=== PATIENT | female | born 1995 | race African-American/Black ===

== ENCOUNTER 2016-05-17 15:24 | Emergency (ER) | payer BC ==
[~2016-05-17] VITALS: Ht 170.2 cm; Wt 76.0 kg
[~2016-05-17 15:24] MED LIST: NAPR-576 PO
[2016-05-17 15:27] VITALS: BP 146/84; PULSE 109; RESP 16; TEMP 99.3; O2SAT 99
[2016-05-17] MEDS ORDERED: IBUPROFEN 800 MG TAB PO ONE (16:45)
--- NOTE | 2016-05-17 16:46 | PD ---
HPI Chief Complaint: Cold / Flu Symptoms Time Seen by Provider: 16:44 Travel History International Travel<30 days: No Contact w/Intl Traveler<30days: No Traveled to known affect area: No History of Present Illness HPI 28-year-old female presents to the emergency Department with complaint of cough , nasal congestion, fever, body aches, headache since Monday with worsening on Monday. Fever onset on Monday with MAXIMUM TEMPERATURE 102.0. Denies ear pain or sore throat. Denies shortness of breath or chest pain. Has been taking DayQuil and NyQuil with some relief of symptoms. No one else with similar symptoms. Has not received a flu vaccination. Allergies to penicillin. Denies significant past medical history. No other modifying factors or associated signs and symptoms. 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 No rash. HEAD: Atraumatic. Normocephalic. EYES: Pupils equal and round at 3 mm with brisk reaction. No scleral icterus. No injection or drainage. PERRLA. ENT: Mucosa pink and moist. No erythema or exudates. No uvular edema. No uvular , palatal, or tonsillar deviation. Airway patent. EARS: Bilateral pinnae and external canals appear within normal limits. Bilateral tympanic membranes without erythema, dullness or perforation. NECK: Trachea midline. No lymphadenopathy. CARDIOVASCULAR: Regular rate and rhythm. No murmur appreciated. RESPIRATORY: No accessory muscle use. Clear to auscultation. Breath sounds equal bilaterally. GASTROINTESTINAL: Abdomen soft, non-tender, nondistended. Hepatic and splenic margins not palpable. Bowel sounds are active 4 quadrants. MUSCULOSKELETAL: No obvious deformities. No clubbing. No cyanosis. No edema. NEUROLOGICAL: Awake and alert. Oriented 3. No obvious cranial nerve deficits. Motor grossly within normal limits. Normal speech. Moves all extremities. 5/5 strength to all extremities. PSYCHIATRIC: Appropriate mood and affect; insight and judgment normal. Data Data Last Documented VS Vital Signs Date Time Temp Pulse Resp B/P Pulse Ox O2 Delivery O2 Flow Rate FiO2 05/17/16 15:27 99.3 109 16 146/84 99 Orders Influenzae A/B Antigen (05/17/16 16:42) Chest, Single Ap (05/17/16 16:42) Ibuprofen (Motrin) (05/17/16 16:45) MDM Medical Decision Making Medical Screen Exam Complete: Yes Emergency Medical Condition: Yes Medical Record Reviewed: Yes Differential Diagnosis Viral illness, influenza, sinusitis Narrative Course 20-year-old female with cold/flu symptoms since Monday. Low-grade fever of 99.3 in the ER. Nontoxic appearing. Patient reports fever for 102.0 at home. Denies sore throat. Denies chest pain or shortness of breath. Heart rate recheck on physical exam is approximate 90-100 bpm. Ibuprofen ordered. Chest x -ray and influenza ordered. 171: Chest x-ray with no acute findings. 183: Influenza positive. Discussed viral illness and symptomatic treatment and the patient verbalized understanding and agreement. Tessalon Perles, Nasonex nasal spray, ibuprofen prescribed for home. Patient is medically cleared and stable for discharge. Discussed reasons to return to the emergency department. Instructed patient to follow up with primary care provider. Patient agrees with treatment plan. The patients vital signs are stable and the patient is stable for outpatient follow-up and treatment. Patient discharged home, stable and in no acute distress. Diagnosis Primary Impression: Influenza A Referrals: Primary Care Physician Patient Instructions: General Instructions, Influenza (ED), Safe Use of Cough and Cold Medicines (ED) Departure Forms: School Release, Enter return to school date ABOVE or choose options BELOW: Fever free for 24 hrs Tests/Procedures Additional Instructions: Ibuprofen or Tylenol as directed and as needed to reduce fever; may alternate ibuprofen and Tylenol as needed every 3 hours to minimize fever [id number] antihistamines or decongestants as directed and as needed for symptom management Get plenty of sleep/rest Drink plenty of fluids to prevent dehydration [place] diet to encourage nutrition such as crackers, fruit, applesauce, toast, soup etc. Use an air humidifier/turn off ceiling fans Follow-up with your primary care provider within 1 day Return immediately to the emergency department with worsening of symptoms Med/Other Pt SpecificInfo: Prescription(s) given Scripts Ibuprofen 800 Mg [id number] Mg PO Q6HR PRN (PAIN) #30 TAB Ref 0 Prov:Amelia Escobar 05/17/16 Benzonatate (Tessalon Perles)100 Mg [id number] Mg PO TID PRN (COUGH) #20 CAP Ref 0 Prov:Amelia Escobar 05/17/16 Mometasone Nasal [place] (Nasonex Nasal [place])50 Mcg/Act Naspr2 [place] EACH NARE DAILY PRN (NASAL CONGESTION) #1 BOTTLE Ref 0 Prov:Amelia Escobar 05/17/16 Disposition: 01 DISCHARGE HOME Condition: Stable Amelia Escobar May 17, 2016 16:46
--- NOTE | 2016-05-17 17:10 | RADRPT ---
EXAM DATE/TIME: 05/17/2016 17:01 [facility] COMPARISON: No previous studies available for comparison. INDICATIONS : Fever, cough, and congestion. MEDICAL HISTORY : None. SURGICAL HISTORY : None. ENCOUNTER: Initial ACUITY: 4 - 6 days PAIN SCORE: 0/10 LOCATION: Bilateral chest FINDINGS: A single view of the chest demonstrates the lungs to be symmetrically aerated without evidence of mas s, infiltrate or effusion. The cardiomediastinal contours are unremarkable. Osseous structures are intact. CONCLUSION: No acute disease. Noé Martinez MD on May 17, 2016 at 17:09 Board Certified Radiologist. This report was verified electronically.
[2016-05-17] MEDS ORDERED: BENZ100 PO (18:37)
[2016-05-17] MEDS ORDERED: IBUP800T23 PO (18:37)
[2016-05-17] MEDS ORDERED: MOME17I EACH NARE (18:37)
== END 2016-05-17 18:56 | disposition home or self-care (01) ==
LOC: NEPB 15:24
DX: J09.X2 Influenza due to identified novel influenza A virus with other respiratory manifestations (principal); R50.9 Fever, unspecified; R09.81 Nasal congestion
CPT/HCPCS: 71010; 87804; 99283